=== PATIENT | male | born 1980 | race Two or more races ===

== ENCOUNTER 2021-11-20 20:45 | Emergency (ER) | payer MEDICAID, OTHER ==
[~2021-11-20] VITALS: Ht 182.9 cm; Wt 108.9 kg
[~2021-11-20 20:45] MED LIST: OMEP20CA74 OR
[2021-11-20 20:56] VITALS: BP 116/75
[2021-11-20] MEDS ORDERED: FLUORESCEIN SOD OPTH TEST STRIP EACHEYE ONE (22:00)
[2021-11-20] MEDS ORDERED: TETRACAINE HCL 0.5% OPTH(EYE) SOLN 4ML EACHEYE ONE (22:00)
[2021-11-20] MEDS ORDERED: IBUPROFEN 800 MG TAB PO ONE (22:30)
[2021-11-20] MEDS ORDERED: KETOROLAC TROMETH 60MG/2ML VIAL IM ONE (22:45)
[2021-11-20] MEDS ORDERED: IBUP800T27 PO (22:47)
== END 2021-11-20 23:22 | disposition home or self-care (01) ==
LOC: ER 20:45
DX: H16.103 Unspecified superficial keratitis, bilateral (principal)
CPT/HCPCS: 96372; 99283; J1885; 65222

== ENCOUNTER 2024-01-22 10:38 | Emergency (ER) | payer MEDICAID ==
[~2024-01-22] VITALS: Ht 182.9 cm; Wt 108.1 kg
[~2024-01-22 10:38] MED LIST changes: +IBUP-1456 PO
[2024-01-22 12:56] VITALS: BP 125/88; PULSE 98; RESP 17; TEMP 98.7; O2SAT 98
== END 2024-01-22 13:01 | disposition left against medical advice (07) ==
LOC: ER 10:38
DX: R22.41 Localized swelling, mass and lump, right lower limb (principal); Z53.21 Procedure and treatment not carried out due to patient leaving prior to being seen by health care provider